=== PATIENT | female | born 1990 | race Caucasian/White ===

== ENCOUNTER 2016-11-07 20:00 | Emergency (ER) | payer SELFPAY ==
[2016-11-07 20:22] VITALS: TEMP 99.1; BMI 15.7
[2016-11-07] MEDS ORDERED: NS 1,000 ML IV ONE (20:51)
[2016-11-07] MEDS ORDERED: MORPHINE 4 MG/ML INJECTION IV ONE (20:51)
[2016-11-07] MEDS ORDERED: ONDANSETRON HCL 4 MG/2 ML VIAL IV ONE (20:51)
[2016-11-07 21:02] LABS: LEUKOCYTES/URINE 2+ (NEGATIVE); RBC/URINE 30-40 (0-5); URINE OCCULT BLOOD 2+ (NEG/TRACE); WBC/URINE TNTC (0-5)
[2016-11-07 21:03] LABS: NITRITE/URINE POS (NEGATIVE)
[2016-11-07] MEDS ORDERED: LEVOFLOXACIN 750 MG TAB PO ONE (21:10)
--- NOTE | 2016-11-07 21:15 | EDPRACDOC ---
- General Information Chief Complaint: Female Urogenital Problems Stated Complaint: URINARY SYMPTOMS Time Seen by Provider: 11/07/16 20:43 Information Source: Patient Mode Of Arrival: Car Home Medications: Home Medications Pentosan Polysulfate Sodium [Elmiron] 100 mg PO TID 07/27/16 Solifenacin Succinate [Vesicare] 5 mg PO DAILY 09/04/16 Ascorbic Acid [Vitamin C] 250 mg PO TIDWM #100 tablet 10/09/16 Cephalexin Monohydrate [Keflex] 500 mg PO QID #42 capsule 10/09/16 Ensure [Ensure Plus (Coggon)] 240 ml PO 1200 #30 can 10/09/16 Ferrous Sulfate 324 mg PO TIDWM #100 tablet 10/09/16 Magnesium Oxide [Mag-Ox] 400 mg PO DAILY #30 tablet 10/09/16 Nicotine [Nicoderm] 21 mg TOP Q24H #30 pat 10/09/16 POTASSIUM CHLORIDE Tablet [K-DUR 20 mEq Tablet*] 20 meq PO BID #60 tab.er.prt Levofloxacin [Levaquin] 750 mg PO DAILY #10 tablet 11/07/16 Ondansetron [Zofran Odt] 4 mg PO Q6H PRN #20 tab.rapdis 11/07/16 Allergies/Adverse Reactions: Allergies Allergy/AdvReac Type Severity Reaction Status Date / Time No Known Allergies Allergy Verified 11/07/16 20:22 - History of Present Illness HPI: PT PRESENTS WITH HEMATURIA AND SUPRAPUBIC PAIN. PT HAS A LONG HISTORY OF URINARY ISSUES AND SELF CATHS HERSELF. PT STATES SHE IS ALSO HAVING PAIN IN HER THORACIC AND LUMBAR SPINE, PT HAS HAD SPINAL SURGERY IN THE PAST. PRESENTS WITH CLOUDY ORANGE, FOUL SMELLING URINE. PT HAS TAKEN AZO TODAY Onset: [employer]IN [employer] Urinary Pain Location: Reports: Suprapubic Symptom Onset: Reports: Spontaneous Pain Severity: Mild Pain Quality: Reports: Aching, Burning History of: Reports: UTI (PT SELF CATHS) : No Oral Intake: Normal Urinary Output: Normal Associated Signs and Symptoms: Reports: Back Pain ED Past Medical History - History Reviewed Yes Nurses notes reviewed and agree except as marked - Patient Medical History Respiratory History: Reports: Chronic Bronchitis GI/ History: Reports: Urinary Tract Infection, Gastroesophageal Reflux Psychological History: Reports: Anxiety. 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 Surgical History: Reports: Other (TUMOR REMOVED FROM SPINE.) - Family Medical History Reports: Hypertension (MGM), Diabetes (MGM, Aunt), Cancer (MGF), Stroke (Mother) , Cardiac Disorders (Mother) - Social Medical History Smoking Status: Heavy tobacco smoker (5 or more cigarettes/day or daily pipe/ cigar) Social History: Denies: Substance Use Disorder EDM Review of Systems - Review of Systems ROS Negative Except as Marked: Yes All systems reviewed and were negative except as marked - Physical Exam Constitutional: Alert Oriented to: Time, Person, Place Last recorded Vital Signs: Last Vital Signs Temp 99.1 F 11/07/16 20:19 Pulse 116 11/07/16 20:19 Resp 20 11/07/16 20:19 BP 93/55 L 11/07/16 20:19 Pulse Ox 97 11/07/16 20:19 Oxygen Pulse Oxygen Saturation 97 O2 Device Room Air Oxygen Flow Rate Fraction of Inspired Oxygen ( FIO2) - HEENT Head: Normal ( normocephalic) Eye Exam: Normal (PERRL, EOMI, Sclera white) Oropharynx: Normal (Pharynx:Moist without exudate,Gums-no swelling) Nose: No Symptoms Reported (septum midline) Neck: Normal (FROM, trachea at midline) - Respiratory/Cardiovascular Respiratory: Normal - CTA (BBS clear to auscultation without adventitious sounds ) Cardiovascular: Tachycardia - GI Auscultation: Normal (NABS) Palpation: Normal (Soft,No rebound or guarding, non distended) Tenderness: Non tender Ramirez's Sign: Negative Rectal Exam: Deferred - Musculoskeletal Back: Normal (Non-Tender) Extremities: Normal (Normal tone, Pulses 2+ No cyanosis or edema, FROM) - Integumentary Skin: Normal, Warm, Dry Lymphatics: Normal (no adenopathy) - Neurologic Memory Impaired: Normal Motor Function: Normal (Normal tone, Pulses 2+ No cyanosis or edema, FROM) Cranial Nerve: Normal (CN II-X11 intact sensation, strength 5/5) Cerebellar: Normal Mood Description: Normal Perception: Normal - Differential Diagnosis UTI - Results 11/07/16 22:00 11/07/16 22:00 Urine Color [place] 11/07/16 20:51 Urine Clarity Cldy 01/06/17 20:51 Urine pH 5.0 (5.0-8.0) 11/07/16 20:51 Ur Specific [place] 1.010 (1.003-1.035) 11/07/16 20:51 Urine Protein 3+ (NEG/TRACE) H 11/07/16 20:51 Urine Glucose (UA) Neg (NEGATIVE) 11/07/16 20:51 Urine Ketones Neg (NEGATIVE) 11/07/16 20:51 Urine Occult Blood 2+ (NEG/TRACE) H 11/07/16 20:51 Urine Nitrite Pos (NEGATIVE) H 11/07/16 20:51 Urine Bilirubin Neg (NEGATIVE) 11/07/16 20:51 Urine Urobilinogen 4 MG/DL (0-1) H 11/07/16 20:51 Ur Leukocyte Esterase 2+ (NEGATIVE) H 11/07/16 20:51 Urine RBC 30-40 (0-5) H 11/07/16 20:51 Urine WBC Tntc (0-5) H 11/07/16 20:51 Urine WBC Clumps Present (NONE) H 11/07/16 20:51 Urine Bacteria 4+ (NEG/FEW) H 11/07/16 20:51 Lab Results 11/07/16 20:51 Urine Color [place] Urine Clarity Cldy Urine pH 5.0 Ur Specific [place] 1.010 Urine Protein 3+ H Urine Glucose (UA) Neg Urine Ketones Neg Urine Occult Blood 2+ H Urine Nitrite Pos H Urine Bilirubin Neg Urine Urobilinogen 4 H Ur Leukocyte Esterase 2+ H Urine RBC 30-40 H Urine WBC Tntc H Urine WBC Clumps Present H Urine Bacteria 4+ H Decision Time to Discharge: 22:30 - Departure Disposition: Home Condition: Stable Final Diagnosis: UTI (urinary tract infection) Qualifiers: Urinary tract infection type: acute cystitis Hematuria presence: with hematuria Qualified Code(s): N30.01 - Acute cystitis with hematuria Instructions: Urinary Tract Infection in Women (ED), Dysuria Education/Counseling Given To: Patient Education/Counseling Given Regarding: Diagnosis, Treatment, Prognosis, Follow Up Referrals: Harley Olivera II, MD [Staff Physician] - One Week Prescriptions: Levofloxacin [Levaquin] 750 mg PO DAILY #10 tablet Ondansetron [Zofran Odt] 4 mg PO Q6H PRN #20 tab.rapdis PRN Reason: Nausea/Vomiting Additional Instructions: INCREASE FLUID INTAKE. FOLLOW UP WITH PRIMARY CARE PROVIDER NEXT WEEK. TAKE ALL ANTIBIOTICS PRESCRIBED. RETURN TO THE ED FOR WORSENING SYMPTOMS OR CONCERNS.
--- NOTE | 2016-11-07 21:32 | DIRPT ---
CLINICAL DATA: Back pain. History of lumbar surgery. EXAM: LUMBAR SPINE - COMPLETE 4+ VIEW COMPARISON: 10/07/2016 FINDINGS: No acute fracture. No spondylolisthesis. Changes from prior surgery with laminectomies in the upper to mid lumbar spine are stable. No significant degenerative changes. Soft tissues are unremarkable. IMPRESSION: 1. No fracture or acute finding. Stable postsurgical changes. Electronically Signed By: Tony Aranda M.D. On: 11/07/2016 21:29
--- NOTE | 2016-11-07 21:33 | DIRPT ---
CLINICAL DATA: Back pain for months, history of back surgery in 2010 to remove tumor, midline back pain currently EXAM: THORACIC SPINE 2 VIEWS COMPARISON: None. FINDINGS: Surgical fixation clips identified at T12, L1, and L2. Thoracic spine shows normal alignment. Mildly exaggerated kyphosis lower thoracic spine. IMPRESSION: Postsurgical change. Electronically Signed By: Harpreet Peña M.D. On: 11/07/2016 21:30
[2016-11-07] MEDS ORDERED: CEFTRIAXONE 1 GM VIAL IM ONE (21:46)
[2016-11-07 22:13] LABS: AUTOMATED BASOPHIL 0.1 % (0-2); AUTOMATED EOSINOPHIL 0.3 % (0-5); AUTOMATED MONOCYTE 6.3 % (3-10); AUTOMATED NEUTROPHIL 82.3 % (45-76); MPV 6.9 fL (7.4-10.4)
[2016-11-07 22:22] LABS: BLOOD UREA NITROGEN 16 MG/DL (7-17); CALC CORRECTED 9.3 MG/DL (8.4-10.2); CALCULATED OSMOLALITY 266 MOs/Kg (270-290); CHLORIDE 98 mEq/L (98-107); GLUCOSE 153 MG/DL (70-99); SODIUM LEVEL 136 mEq/L (137-146); TOTAL PROTEIN 7.1 G/DL (6.3-8.2)
[2016-11-07] MEDS ORDERED: LIDOCAINE 1% 2 ML (METHYLPARABEN FREE) ONE (22:48)
[2016-11-07 23:21] VITALS: BP 104/58; PULSE 75
== END 2016-11-07 23:21 | disposition home or self-care (01) ==
LOC: ED 20:00
DX: N30.01 Acute cystitis with hematuria (principal)
CPT/HCPCS: 36415; 72070; 72110; 80053; 81001; 83605; 85025; 87040; 87077; 87086; 87186; 96372; 99283; J0696; J2001; J3490; J2270; J2405